=== PATIENT | female | born 1990 | race Caucasian/White ===

== ENCOUNTER 2020-08-08 10:44 | Inpatient (IN) | payer BC ==
[2020-08-08] MEDS ORDERED: Misoprostol 100 MCG Tab VAG PRN (19:01)
[2020-08-08] MEDS ORDERED: Ondansetron 4 MG/2 ML SDV IVPUSH PRN ×2 (19:01→19:22)
[2020-08-08] MEDS ORDERED: Sodium Chloride 0.9% 10 ML Syringe FLUSH PRN (19:01)
[2020-08-08] MEDS ORDERED: Nalbuphine 10 MG/1 ML Vial IVPUSH PRN (19:01)
--- NOTE | 2020-08-08 19:09 | PCM.LDHP ---
L&D History of Present Illness - General Date of Service: 08/08/20 Admit Problem/Dx: Patient Status Order with Admit Dx/Problem 08/08/20 19:01 Patient Status [ADT] Routine Admission Diagnosis/Problem Admission Diagnosis/Problem Source of Information: Patient History Limitations: Reports: No Limitations - History of Present Illness Introduction:: Patient is a 29 y/o at 40 5/7 wks who presents for post dates IOL. Doing well. Good FM. - Related Data Allergies/Adverse Reactions: Allergies Allergy/AdvReac Type Severity Reaction Status Date / Time No Known Allergies Allergy Verified 08/08/20 19:48 Past Medical History [employer] History: Reports: : 1 Para: 0 LMP (Approximate): - Past Surgical History Female Surgical History: Reports: Breast Implant Social & Family History - Tobacco Use Tobacco Use Status *Q: Former Tobacco User - Alcohol Use Alcohol Use History: No - Recreational Drug Use Recreational Drug Use: No H&P Review of Systems - Review of Systems: Review Of Systems: See Below General: Reports: No Symptoms Pulmonary: Reports: No Symptoms Cardiovascular: Reports: No Symptoms Gastrointestinal: Reports: No Symptoms Genitourinary: Reports: No Symptoms Musculoskeletal: Reports: No Symptoms Psychiatric: Reports: No Symptoms Neurological: Reports: No Symptoms L&D Exam - Exam Exam: See Below - OB Specific Contraction Intensity: Irritability Movement: Active Heart Tones: Present Heart Tones per Min: 125 Heart Rate (FHR) Variability: Moderate (6-25 bmp) Presentation: Vertex - Bose Score Bose Score Cervix Position: Posterior Bose Score Consistency: Medium Bose Score Effacement: 51-70% Bose Score Dilation: 3-4 cm Bose Score 's Station: -2 Bose Score Total: 6 - Exam General: Alert, Oriented, Cooperative Lungs: Clear to Auscultation, Normal Respiratory Effort Cardiovascular: Regular Rate, Regular Rhythm GI/Abdominal Exam: Soft, Non-Tender Genitourinary: Normal external exam Extremities: Normal Inspection Skin: Warm, Dry, Intact - Patient Data Result Diagrams: 08/08/20 19:17 - Problem List (1) Post-dates SNOMED Code(s): 46211844 ICD Code: O48.0 - POST-TERM Status: Acute Current Visit: Yes Qualifiers: Post-term type: 40-42 weeks gestation Qualified Code(s): O48.0 - Post-term (2) Rubella non-immune status, antepartum SNOMED Code(s): 870277934 ICD Code: O99.891 - OTH DISEASES AND CONDITIONS COMPLICATING ; Z28.3 - UNDERIMMUNIZATION STATUS Status: Acute Current Visit: Yes Problem List Initiated/Reviewed/Updated: Yes Orders Last 24hrs: Active Orders 24 hr Category Date Time Status Patient Status [ADT] Routine ADT 08/08/20 19:01 Ordered Activity as Tolerated [RC] PFP Care 08/08/20 19:01 Ordered Communication Order [RC] ASDIRECTED Care 08/08/20 19:01 Ordered Communication Order [RC] ASDIRECTED Care 08/08/20 19:01 Ordered Communication Order [RC] ASDIRECTED Care 08/08/20 19:01 Ordered Communication Order [RC] ASDIRECTED Care 08/08/20 19:01 Ordered Monitoring [RC] INTERMITTENT Care 08/08/20 19:01 Ordered Non Stress Test [RC] PER UNIT ROUTINE Care 08/08/20 19:01 Ordered Notify Provider [RC] ASDIRECTED Care 08/08/20 19:01 Ordered Notify Provider [RC] PRN Care 08/08/20 19:01 Ordered Peripheral IV Care [RC] . DIRECTED Care 08/08/20 19:02 Ordered Vaginal Exam [RC] ASDIRECTED Care 08/08/20 19:01 Ordered Vital Signs [RC] ASDIRECTED Care 08/08/20 19:01 Ordered Regular Diet [DIET] Diet 08/08/20 Dinner Ordered CBC W/O DIFF,HEMOGRAM [HEME] Routine Lab 08/08/20 19:01 Ordered CORONAVIRUS COVID-19 SIERRA [MOLEC] Stat Lab 08/08/20 19:04 Ordered HEP C VIRUS AB [REF] Routine Lab 08/08/20 19:01 Ordered RAPID PLASMA REAGIN,RPR [CHEM] Routine Lab 08/08/20 19:01 Ordered TYPE AND SCREEN [BBK] Routine Lab 08/08/20 19:01 Ordered Lactated Ringers [Ringers, Lactated] 1,000 ml Med 08/08/20 19:15 Ordered IV ASDIRECTED Nalbuphine [Nubain] Med 08/08/20 19:01 Ordered 10 mg IVPUSH Q2H PRN Ondansetron [Zofran] Med 08/08/20 19:01 Ordered 4 mg IVPUSH Q4H PRN Oxytocin/Lactated Ringers [Pitocin in LR 10 Units/1,000 Med 08/08/20 19:15 Ordered ML] 10 unit in 1,000 ml IV .CONTINUOUS Oxytocin/Lactated Ringers [Pitocin in LR 10 Units/1,000 Med 08/08/20 19:15 Ordered ML] 10 unit in 1,000 ml IV TITRATE Sodium Chloride 0.9% [Saline Flush] Med 08/08/20 19:01 Ordered 10 ml FLUSH ASDIRECTED PRN miSOPROStoL [Cytotec] Med 08/08/20 19:01 Ordered 25 mcg VAG Q4H PRN Electronic Heart Tones Internal [WOMSER] Per Unit Ot 08/08/20 19:01 Ordered Routine Peripheral IV Insertion Adult [OM.PC] Routine Ot 08/08/20 19:01 Ordered Medication Orders Oxytocin/Lactated Ringer's (Pitocin In Lr 10 Units/1,000 Ml) 10 unit in 1,000 mls @ 12 mls/hr IV TITRATE LESLI; Protocol Oxytocin/Lactated Ringer's (Pitocin In Lr 10 Units/1,000 Ml) 10 unit in 1,000 mls @ 500 mls/hr IV .CONTINUOUS LESLI Lactated Ringer's (Ringers, Lactated) 1,000 mls @ 40 mls/hr IV ASDIRECTED LESLI Misoprostol (Misoprostol 100 Mcg Tab) 25 mcg VAG Q4H PRN PRN Reason: cervical ripening Nalbuphine HCl (Nalbuphine 10 Mg/1 Ml Vial) 10 mg IVPUSH Q2H PRN PRN Reason: Pain Ondansetron HCl (Ondansetron 4 Mg/2 Ml Sdv) 4 mg IVPUSH Q4H PRN PRN Reason: Nausea/Vomiting Sodium Chloride (Sodium Chloride 0.9% 10 Ml Syringe) 10 ml FLUSH ASDIRECTED PRN PRN Reason: Keep Vein Open Assessment/Plan Comment:: * Labs * GBS negative * Pitocin for IOL, AROM when able * Pain management per patient preference * Anticipate
[2020-08-08] MEDS ORDERED: Oxytocin/Lactated Ringers 10 UNIT/1,000 ML BAG IV SCH ×2 (19:15)
[2020-08-08] MEDS ORDERED: fentaNYL 100 MCG/2 ML SDV EPIDUR PRN (19:22)
[2020-08-08] MEDS ORDERED: ePHEDrine 50 MG/ML SDV IVPUSH PRN (19:22)
[2020-08-08] MEDS ORDERED: Bupivacaine/fentaNYL/NS 100 ML Bag EPIDUR SCH (19:30)
[2020-08-08] MEDS: Lactated Ringers 1,000 ML IV SCH (20:34)
--- NOTE | 2020-08-08 23:43 | PCM.PREANE ---
Preanesthetic Assessment - Procedure Proposed Procedure: Epidural - Anesthesia/Transfusion/Family Hx Anesthesia History: Prior Anesthesia Without Reaction Family History of Anesthesia Reaction: No Transfusion History: No Prior Transfusion(s) Intubation History: Unknown - Review of Systems General: No Symptoms Pulmonary: No Symptoms Cardiovascular: No Symptoms Gastrointestinal: No Symptoms (GERD) Neurological: No Symptoms (Lower back pain (chronic)) Other: Reports: None - Physical Assessment NPO Status Date: 08/08/20 NPO Status Time: 17:00 Vital Signs: Last Vital Signs Temp 36.6 C 08/08/20 19:45 Pulse 87 08/08/20 19:45 Resp 16 08/08/20 19:45 BP 146/85 H 08/08/20 19:45 Pulse Ox 99 08/08/20 19:45 Height: 1.75 m Weight: 98.248 kg ASA Class: 3 Mental Status: Alert & Oriented x3 Airway Class: Mallampati = 2 Dentition: Reports: Normal Dentition, Caries Thyro-Mental Finger Breadths: 3 Mouth Opening Finger Breadths: 3 ROM/Head Extension: Full Lungs: Clear to Auscultation, Normal Respiratory Effort Cardiovascular: Regular Rate, Regular Rhythm, No Murmurs - Lab Values: Laboratory Last Values WBC 9.08 K/mm3 (3.98-10.04) 08/08/20 19:17 RBC 3.96 M/mm3 (3.98-5.22) L 08/08/20 19:17 Hgb 11.6 gm/dl (11.2-15.7) 08/08/20 19:17 Hct 33.7 % (34.1-44.9) L 08/08/20 19:17 MCV 85.1 fl (79.4-94.8) 08/08/20 19:17 MCH 29.3 pg (25.6-32.2) 08/08/20 19:17 MCHC 34.4 g/dl (32.2-35.5) 08/08/20 19:17 RDW Std Deviation 40.4 fL (36.4-46.3) 08/08/20 19:17 Plt Count 217 K/mm3 (182-369) 08/08/20 19:17 MPV 10.4 fl (9.4-12.3) 08/08/20 19:17 BUN 10 mg/dL (7-18) 08/08/20 19:17 Creatinine 0.9 mg/dL (0.55-1.02) 08/08/20 19:17 Est Cr Clr Drug Dosing TNP 08/08/20 19:17 Estimated GFR (MDRD) > 60 mL/min (>60) 08/08/20 19:17 Uric Acid 3.7 mg/dL (2.6-6.0) 08/08/20 19:17 AST 21 U/L (15-37) 08/08/20 19:17 ALT 19 U/L (14-59) 08/08/20 19:17 Lactate Dehydrogenase 305 U/L (81-234) H 08/08/20 19:17 Ur Random Creatinine 121.9 mg/dL (30.0-125.0) 08/08/20 20:35 U Random Total Protein 11.3 mg/dL (0.0-11.8) 08/08/20 20:35 Protein/Creatinin Ratio 92.7 mg/g (0-149) 08/08/20 20:35 RPR Non-reactive (NONREACTIVE) 08/08/20 19:17 SARS-CoV-2 RNA (SIERRA) Negative (NEGATIVE) 08/08/20 20:35 Blood Type O POSITIVE 08/08/20 19:17 Gel Antibody Screen Negative 08/08/20 19:17 Above labs reviewed and noted and within acceptable ranges to proceed with epidural if desired. - Allergies Allergies/Adverse Reactions: Allergies Allergy/AdvReac Type Severity Reaction Status Date / Time No Known Allergies Allergy Verified 08/08/20 19:48 - Anesthesia Plan Pre-Op Medication Ordered: None - Acknowledgements Anesthesia Type Planned: Epidural Pt an Appropriate Candidate for the Planned Anesthesia: Yes Alternatives and Risks of Anesthesia Discussed w Pt/Guardian: Yes Pt/Guardian Understands and Agrees with Anesthesia Plan: Yes PreAnesthesia Questionnaire HEENT History: Reports: Other (See Below) Other HEENT History: Wears glasses Gastrointestinal History: Reports: GERD PROGRAM DIR History: Reports: Endocrine/Metabolic History: Reports: Obesity/BMI 30+ Dermatologic History: Reports: Other (See Below) Other Dermatologic History: Dermatophytosis - Past Surgical History Female Surgical History: Reports: Breast Implant - SUBSTANCE USE Tobacco Use Status *Q: Former Tobacco User Tobacco Use Within Last Twelve Months: No Recreational Drug Use History: No - HOME MEDS Home Medications: Home Meds Calcium Carbonate [Tums] 500 mg PO Q2HR PRN 08/08/20 [History] Omeprazole Magnesium [Prilosec Otc] 20 mg PO ACBREAKFAST 08/08/20 [History] No122/Iron/Folic Acid [ Multi Tablet] 1 tab PO DAILY 08/08/20 [History] - CURRENT (IN HOUSE) MEDS Current Meds: Current Medications Ephedrine Sulfate (Ephedrine 50 Mg/Ml Sdv) 5 mg IVPUSH ASDIRECTED PRN PRN Reason: Hypotension Fentanyl (Fentanyl 100 Mcg/2 Ml Sdv) 100 mcg EPIDUR Q3H PRN PRN Reason: Pain Fentanyl/Bupivacaine HCl (Bupivacaine/Fentanyl/Ns 100 Ml Bag) 100 ml EPIDUR ASDIRECTED LESLI Oxytocin/Lactated Ringer's (Pitocin In Lr 10 Units/1,000 Ml) 10 unit in 1,000 mls @ 12 mls/hr IV TITRATE LESLI; Protocol Last Titration: 08/08/20 23:10 Dose: 12 munits/min, 72 mls/hr Documented by: Oxytocin/Lactated Ringer's (Pitocin In Lr 10 Units/1,000 Ml) 10 unit in 1,000 mls @ 500 mls/hr IV .CONTINUOUS LESLI Lactated Ringer's (Ringers, Lactated) 1,000 mls @ 40 mls/hr IV ASDIRECTED LESLI Last Admin: 08/08/20 20:34 Dose: 40 mls/hr Documented by: Miscellaneous Medication (Phenylephrine Hcl In 0.9% Nacl 1 Mg/10 Ml Syringe) 0.1 mg IVPUSH Q10M PRN PRN Reason: Hypotension Nalbuphine HCl (Nalbuphine 10 Mg/1 Ml Vial) 10 mg IVPUSH Q2H PRN PRN Reason: Pain Ondansetron HCl (Ondansetron 4 Mg/2 Ml Sdv) 4 mg IVPUSH Q4H PRN PRN Reason: Nausea/Vomiting Ondansetron HCl (Ondansetron 4 Mg/2 Ml Sdv) 4 mg IVPUSH ONETIME PRN PRN Reason: Nausea/Vomiting Sodium Chloride (Sodium Chloride 0.9% 10 Ml Syringe) 10 ml FLUSH ASDIRECTED PRN PRN Reason: Keep Vein Open Discontinued Medications Misoprostol (Misoprostol 100 Mcg Tab) 25 mcg VAG Q4H PRN PRN Reason: cervical ripening
--- NOTE | 2020-08-09 00:55 | PCM.PNLD ---
Labor Progress Note - VS & Meds Vital Signs: Last Vital Signs Temp 36.6 C 08/08/20 19:45 Pulse 87 08/08/20 19:45 Resp 16 08/08/20 19:45 BP 146/85 H 08/08/20 19:45 Pulse Ox 99 08/08/20 19:45 Active Medications: Current Medications Ephedrine Sulfate (Ephedrine 50 Mg/Ml Sdv) 5 mg IVPUSH ASDIRECTED PRN PRN Reason: Hypotension Fentanyl (Fentanyl 100 Mcg/2 Ml Sdv) 100 mcg EPIDUR Q3H PRN PRN Reason: Pain Fentanyl/Bupivacaine HCl (Bupivacaine/Fentanyl/Ns 100 Ml Bag) 100 ml EPIDUR ASDIRECTED LESLI Oxytocin/Lactated Ringer's (Pitocin In Lr 10 Units/1,000 Ml) 10 unit in 1,000 mls @ 12 mls/hr IV TITRATE LESLI; Protocol Last Titration: 08/09/20 00:15 Dose: 16 munits/min, 96 mls/hr Documented by: Oxytocin/Lactated Ringer's (Pitocin In Lr 10 Units/1,000 Ml) 10 unit in 1,000 mls @ 500 mls/hr IV .CONTINUOUS LESLI Lactated Ringer's (Ringers, Lactated) 1,000 mls @ 40 mls/hr IV ASDIRECTED LESLI Last Admin: 08/08/20 20:34 Dose: 40 mls/hr Documented by: Miscellaneous Medication (Phenylephrine Hcl In 0.9% Nacl 1 Mg/10 Ml Syringe) 0.1 mg IVPUSH Q10M PRN PRN Reason: Hypotension Nalbuphine HCl (Nalbuphine 10 Mg/1 Ml Vial) 10 mg IVPUSH Q2H PRN PRN Reason: Pain Ondansetron HCl (Ondansetron 4 Mg/2 Ml Sdv) 4 mg IVPUSH Q4H PRN PRN Reason: Nausea/Vomiting Ondansetron HCl (Ondansetron 4 Mg/2 Ml Sdv) 4 mg IVPUSH ONETIME PRN PRN Reason: Nausea/Vomiting Sodium Chloride (Sodium Chloride 0.9% 10 Ml Syringe) 10 ml FLUSH ASDIRECTED PRN PRN Reason: Keep Vein Open Discontinued Medications Misoprostol (Misoprostol 100 Mcg Tab) 25 mcg VAG Q4H PRN PRN Reason: cervical ripening - Uterine Contractions Uterine Monitoring Mode: External [place] Contraction Intensity: Mild - Monitoring Monitor Mode: External Ultrasound Heart Rate (FHR) Baseline: 125 Heart Rate (FHR) Variability: Moderate (6-25 bmp) Accelerations: Present, 15x15 Decelerations: None Strip Review: Category I - Vaginal Exam Dilation (cm): 4 Effacement (Percent): 75 Station: -2 Cervical Position: Anterior - Labor Progress (Free Text) Labor Progress: Doing well. Pitocin at 16. Not feeling too uncomfortable. AROM done with release of clear fluid. Continue present management
[2020-08-09] MEDS: Lactated Ringers 1,000 ML IV SCH ×2 (02:33→03:42)
--- NOTE | 2020-08-09 11:01 | PCM.DEL ---
L & D Note - General Info Date of Service: 08/09/20 - Delivery Note Labor: Induced by ARM, Induced by Oxytocin Delivery Outcome: Livebirth Infant Delivery Method: Spontaneous Vaginal Delivery-Single Infant Delivery Mode: Spontaneous Presentation: Right Occiput Anterior (GLORIA) Nuchal Cord: None Anesthesia Type: Epidural Amniotic Fluid Description: Clear Episiotomy Type: None Laceration: 1st Degree Suture type: Vicryl Suture size: 2-0 Placenta: Intact, Spontaneous Cord: 3 Vessels Estimated Blood Loss: 100 Resuscitation Needed: Yes [place]: Bulb Syringe, Stimulated, Warmed, [place] Used Delivery Comments (Free Text/Narrative):: Patient found to be complete and began pushing. With maternal pushing effort head delivered from an GLORIA presentation. No nuchal cord present. With gentle downward traction the shoulders and body delivered. Infant placed on maternal abdomen. Cord clamped and cut. Cord blood obtained. Placenta allowed time to separate and expelled intact. Inspection of the perineum showed a 1st degree laceration which was repaired with a 2-0 Vicryl in an interrupted fashion - General Info Date of Service: 08/09/20 - Patient Data Vitals - Most Recent: Last Vital Signs Temp 36.6 C 08/08/20 19:45 Pulse 87 08/08/20 19:45 Resp 16 08/08/20 19:45 BP 146/85 H 08/08/20 19:45 Pulse Ox 99 08/08/20 19:45 Weight - Most Recent: 98.248 kg I&O - Last 24 Hours: Intake & Output 08/08/20 08/09/20 08/09/20 22:59 06:59 14:59 Output Total Balance @ - Exam Urinary Catheter Total Time: 0Days 0Hours - Problem List & Annotations (1) Post-dates SNOMED Code(s): 96249247 Code(s): O48.0 - POST-TERM Status: Acute Current Visit: Yes Qualifiers: Post-term type: 40-42 weeks gestation Qualified Code(s): O48.0 - Post-term (2) Rubella non-immune status, antepartum SNOMED Code(s): 476742111 Code(s): O99.891 - OTH DISEASES AND CONDITIONS COMPLICATING ; Z28.3 - UNDERIMMUNIZATION STATUS Status: Acute Current Visit: Yes (3) Vaginal delivery SNOMED Code(s): 266043914 Code(s): O80 - ENCOUNTER FOR FULL-TERM UNCOMPLICATED DELIVERY Status: Acute Current Visit: Yes - Problem List Review Problem List Initiated/Reviewed/Updated: Yes - My Orders Last 24 Hours: My Active Orders 08/08/20 Dinner Regular Diet [DIET] 08/08/20 19:01 Patient Status [ADT] Routine Activity as Tolerated [RC] PFP Communication Order [RC] ASDIRECTED Communication Order [RC] ASDIRECTED Communication Order [RC] ASDIRECTED Communication Order [RC] ASDIRECTED Monitoring [RC] INTERMITTENT Notify Provider [RC] ASDIRECTED Notify Provider [RC] PRN Nalbuphine [Nubain] 10 mg IVPUSH Q2H PRN Ondansetron [Zofran] 4 mg IVPUSH Q4H PRN Sodium Chloride 0.9% [Saline Flush] 10 ml FLUSH ASDIRECTED PRN Electronic Heart Tones Internal [WOMSER] Per Unit Routine Peripheral IV Insertion Adult [OM.PC] Routine 08/08/20 19:15 Lactated Ringers [Ringers, Lactated] 1,000 ml IV ASDIRECTED Oxytocin/Lactated Ringers [Pitocin in LR 10 Units/1,000 ML] 10 unit in 1,000 ml IV .CONTINUOUS Oxytocin/Lactated Ringers [Pitocin in LR 10 Units/1,000 ML] 10 unit in 1,000 ml IV TITRATE 08/08/20 19:17 HEP C VIRUS AB [REF] Routine 08/08/20 20:18 PIH Panel [OM.PC] Stat - Assessment Assessment:: PPD#0 - Plan Plan:: * Routine cares * Breast feeding * MMR prior to discharge. * Discharge home in 1-2 days
[2020-08-09] MEDS ORDERED: Benzocaine/Menthol 20%-0.5% Spray 56 GM Canister TOP PRN (12:17)
[2020-08-09] MEDS ORDERED: Acetaminophen 325 MG Tab PO PRN (12:17)
[2020-08-09] MEDS ORDERED: Witch Hazel Medicated Pads 40/Jar TOP PRN (12:17)
[2020-08-09] MEDS ORDERED: Docusate Sodium 100 MG Cap PO PRN (12:17)
[2020-08-09] MEDS: Ibuprofen 600 MG Tab PO PRN ×2 (13:02→22:06)
[2020-08-09] MEDS ORDERED: Bupivacaine 0.25% 10 ML SDV ONE (14:00)
[2020-08-10] MEDS: Ibuprofen 600 MG Tab PO PRN ×2 (03:42→16:22)
--- NOTE | 2020-08-10 10:26 | PCM48HPAN ---
Post Anesthesia Note - EVALUATION WITHIN 48HRS OF ANESTHETIC Vital Signs in Normal Range: Yes Patient Participated in Evaluation: Yes Respiratory Function Stable: Yes Airway Patent: Yes Cardiovascular Function Stable: Yes Hydration Status Stable: Yes Pain Control Satisfactory: Yes Nausea and Vomiting Control Satisfactory: Yes Mental Status Recovered: Yes Vital Signs: Last Vital Signs Temp 97.2 F 08/10/20 03:40 Pulse 69 08/10/20 03:40 Resp 13 08/10/20 03:40 BP 91/54 L 08/10/20 03:40 Pulse Ox 97 08/10/20 03:40
--- NOTE | 2020-08-10 11:30 | PCM.SN.2 ---
- Free Text/Narrative Note: Post Progress Note PPD #1 Subjective: Doing well overall. Ambulating without difficulty. Lochia minimal. Voiding without difficulty. Tolerating regular diet without nausea or vomiting. Pain controlled with oral medications. Breast-feeding with formula supplementation as needed with minimal difficulty. Denies any headaches, vision changes or epigastric pain. Objective: Vitals: Vital Signs - 24 hr 08/09/20 08/09/20 08/10/20 14:48 22:05 03:40 Temperature 37.0 C 36.6 C 36.2 C Pulse, 84 74 69 Peripheral Respiratory 14 14 13 Rate Blood Pressure 109/62 123/68 91/54 L O2 Sat by Pulse 92 L 96 97 Oximetry Physical Exam General: Alert and oriented, no acute distress Lungs: Clear to auscultation bilaterally Heart: Regular rate and rhythm Abdomen: Soft, minimal appropriate tenderness, non-distended, fundus midline, nontender, and 1 fingerbreadth below the umbilicus Extremities: Trace edema in bilateral lower extremities to mid shins, no calf tenderness bilaterally ASSESSMENT: 29-year-old female -0-0-1 s/p normal vaginal delivery PPD #1, complicated by gestational hypertension diagnosed in labor PLAN: Doing well Breast-feeding with small amounts of formula supplementation with minimal difficulty. Assist as needed Lochia minimal. Continue to monitor for appropriate lochia. Continue routine care Anticipate discharge home tomorrow Kranthi Powell MD 11:30 AM 08/10/2020
[2020-08-11] MEDS: Ibuprofen 600 MG Tab PO PRN ×2 (01:11→10:07)
--- NOTE | 2020-08-11 11:15 | PCM.SN.2 ---
- Free Text/Narrative Note: Post Progress Note PPD #2 Subjective: Doing well overall. Ambulating without difficulty. Lochia minimal. Voiding without difficulty. Tolerating regular diet without nausea or vomiting. Pain controlled with oral medications. Patient reports that she has been having some increased amount of soreness in her low back. Denies any sharp pain in her low back. It has been very mild overall. Ibuprofen seems to help more for this pain. Breast-feeding with formula supplementation as needed with minimal dif ficulty. Denies any headaches, vision changes or epigastric pain. Objective: Vitals: Vital Signs - 24 hr 08/10/20 08/10/20 08/11/20 16:20 20:18 04:01 Temperature 36.5 C 36.7 C 36.2 C Pulse, 82 73 63 Peripheral Respiratory 16 14 14 Rate Blood Pressure 118/71 116/73 103/58 L O2 Sat by Pulse 95 96 97 Oximetry 08/11/20 10:09 Temperature 36.6 C Pulse, 58 L Peripheral Respiratory 15 Rate Blood Pressure 122/84 O2 Sat by Pulse 96 Oximetry Physical Exam General: Alert and oriented, no acute distress Lungs: Clear to auscultation bilaterally Heart: Regular rate and rhythm Abdomen: Soft, minimal appropriate tenderness, non-distended, fundus midline, nontender, and 2 fingerbreadths below the umbilicus Extremities: Trace edema in bilateral lower extremities to mid shins, no calf tenderness bilaterally ASSESSMENT: 29-year-old female -0-0-1 s/p normal vaginal delivery PPD #2, complicated by gestational hypertension diagnosed in labor PLAN: Doing well Breast-feeding with small amounts of formula supplementation with minimal difficulty. Assist as needed Lochia minimal. Continue to monitor for appropriate lochia. Patient with mild soreness in her lower back. Likely due to muscle soreness and tightening from pushing during labor. Continue routine care Discharge home today Kranthi Powell MD 11:12 AM 08/11/2020
--- NOTE | 2020-08-11 11:25 | PCM.DCSUM1 ---
Discharge Summary - Hospital Course Free Text/Narrative:: - General Info Date of Service: 08/09/20 - Delivery Note Labor: Induced by ARM, Induced by Oxytocin Delivery Outcome: Livebirth Delivery Method: Spontaneous Vaginal Delivery-Single Delivery Mode: Spontaneous Presentation: Right Occiput Anterior (GLORIA) Nuchal Cord: None Anesthesia Type: Epidural Amniotic Fluid Description: Clear Episiotomy Type: None Laceration: 1st Degree Suture type: Vicryl Suture size: 2-0 Placenta: Intact, Spontaneous Cord: 3 Vessels Estimated Blood Loss: 100 Resuscitation Needed: Yes [place]: Bulb Syringe, Stimulated, Warmed, [place] Used Delivery Comments (Free Text/Narrative):: Patient found to be complete and began pushing. With maternal pushing effort head delivered from an GLORIA presentation. No nuchal cord present. With gentle downward traction the shoulders and body delivered. Infant placed on maternal abdomen. Cord clamped and cut. Cord blood obtained. Placenta allowed time to separate and expelled intact. Inspection of the perineum showed a 1st degree laceration which was repaired with a 2-0 Vicryl in an interrupted fashion Diagnosis: Stroke: No - Discharge Data Discharge Date: 08/11/20 Discharge Disposition: Home, Self-Care 01 Condition: Good - Referral to Home Health Primary Care Physician: Indu Park MD - Discharge Diagnosis/Problem(s) (1) 40 weeks gestation of SNOMED Code(s): 78174495 ICD Code: Z3A.40 - 40 WEEKS GESTATION OF Status: Acute Current Visit: Yes (2) Rubella non-immune status, antepartum SNOMED Code(s): 828175648 ICD Code: O99.891 - OTH DISEASES AND CONDITIONS COMPLICATING ; Z28.3 - UNDERIMMUNIZATION STATUS Status: Acute Current Visit: Yes (3) Vaginal delivery SNOMED Code(s): 177853970 ICD Code: O80 - ENCOUNTER FOR FULL-TERM UNCOMPLICATED DELIVERY Status: Acute Current Visit: Yes (4) Gestational hypertension SNOMED Code(s): 215772877 ICD Code: O13.9 - GESTATIONAL HTN W/O SIGNIFICANT PROTEINURIA, UNSP TRIMESTER Status: Acute Current Visit: Yes - Patient Summary/Data Complications: None Consults: None Hospital Course: Haily Krueger was admitted for elective induction of labor. On admission her cervix was dilated to 3-4 cm. She was GBS negative. She was given pitocin for augmentation. She was given an epidural for anesthesia. She had artificial rupture of membranes with clear fluid. She progressed to complete and began pushing. On 08/01/2020 she had a normal vaginal delivery of a live male at 10:44. Apgars of 8 and 9. Weight of 3600 g (7 pounds 15.0 ounces). Her course was uneventful. Her pain was well controlled and she had minimal lochia. She was ambulating, tolerating a regular diet and voiding normally. She was breast-feeding with small amounts of formula supplementation with minimal difficulty. She was afebrile and her hematocrit was 33.7 on admission. She desired to be discharged home on the morning of PPD #2. Her blood type is O+. - Patient Instructions Diet: Regular Diet as Tolerated Activity: Apply Ice, As Tolerated Activity, Other: Nothing in the vagina for 6 weeks Driving: May Drive Today Showering/Bathing: May Shower Notify Provider of: Fever, Increased Pain, Swelling and Redness, Drainage, Nausea and/or Vomiting Other/Special Instructions: Please contact your physician's office if you have heavy vaginal bleeding enough to soak a pad in less than an hour for several hours. Monitor for any signs of an infection in the breasts with severe pain or redness of the breast. Please contact your physician's office if you have a severe headache that does not improve with Tylenol or ibuprofen, spots in your vision or severe pain in your upper abdomen. - Discharge Plan *PRESCRIPTION DRUG MONITORING PROGRAM REVIEWED*: Not Applicable *COPY OF PRESCRIPTION DRUG MONITORING REPORT IN PATIENT VANDANA: Not Applicable Home Medications: Home Meds No122/Iron/Folic Acid [ Multi Tablet] 1 tab PO DAILY 08/08/20 [History] Acetaminophen [Tylenol] 650 mg PO Q4H PRN tablet 08/11/20 [Rx] Benzocaine/Menthol [Dermoplast Pain Relief [place]] 1 spray TOP ASDIRECTED PRN canister 08/11/20 [Rx] Docusate Sodium [Colace] 100 mg PO BID PRN cap 08/11/20 [Rx] Ibuprofen [Motrin] 600 mg PO Q6H PRN tablet 08/11/20 [Rx] martha gaonaeL [Tucks] 1 pad TOP ASDIRECTED PRN pad 08/11/20 [Rx] Patient Handouts: Care of a Perineal Tear, Care After Vaginal Delivery Referrals: Indu Park MD [Primary Care Provider] - (Follow-up in 1 week for blood pressure check and routine visit or earlier as needed.) - Discharge Summary/Plan Comment DC Time >30 min.: No - Patient Data Vitals - Most Recent: Last Vital Signs Temp 36.6 C 08/11/20 10:09 Pulse 58 L 08/11/20 10:09 Resp 15 08/11/20 10:09 BP 122/84 08/11/20 10:09 Pulse Ox 96 08/11/20 10:09 Weight - Most Recent: 98.248 kg Lab Results - Last 24 hrs: Laboratory Results - last 24 hr 08/08/20 Range/Units 19:17 Hepatitis C Antibody <0.1 (0.0-0.9) s/co ratio Med Orders - Current: Current Medications Acetaminophen (Acetaminophen 325 Mg Tab) 650 mg PO Q4H PRN PRN Reason: mild pain or fever Benzocaine/Menthol (Benzocaine/Menthol 20%-0.5% [place] 56 Gm Canister) 0 gm TOP ASDIRECTED PRN PRN Reason: Perineal Comfort Measure Last Admin: 08/09/20 13:01 Dose: 1 can Documented by: Docusate Sodium (Docusate Sodium 100 Mg Cap) 100 mg PO BID PRN PRN Reason: Constipation Ibuprofen (Ibuprofen 600 Mg Tab) 600 mg PO Q6H PRN PRN Reason: Mild pain or fever Last Admin: 08/11/20 10:07 Dose: 600 mg Documented by: Martha Dinh (Martha Dinh Medicated Pads 40/Jar) 1 pad TOP ASDIRECTED PRN PRN Reason: Perineal Comfort Measure Last Admin: 08/09/20 13:01 Dose: 1 container Documented by: Discontinued Medications Bupivacaine HCl (Bupivacaine 0.25% 10 Ml Sdv) 10 ml .ROUTE .STK-MED ONE Stop: 08/09/20 14:01 Ephedrine Sulfate (Ephedrine 50 Mg/Ml Sdv) 5 mg IVPUSH ASDIRECTED PRN PRN Reason: Hypotension Fentanyl (Fentanyl 100 Mcg/2 Ml Sdv) 100 mcg EPIDUR Q3H PRN PRN Reason: Pain Last Admin: 08/09/20 02:26 Dose: 100 mcg Documented by: Fentanyl/Bupivacaine HCl (Bupivacaine/Fentanyl/Ns 100 Ml Bag) 100 ml EPIDUR ASDIRECTED [facility] Last Admin: 08/09/20 02:26 Dose: 100 ml Documented by: Oxytocin/Lactated Ringer's (Pitocin In Lr 10 Units/1,000 Ml) 10 unit in 1,000 mls @ 12 mls/hr IV TITRATE LESLI; Protocol Last Titration: 08/09/20 09:47 Dose: Infused Documented by: Oxytocin/Lactated Ringer's (Pitocin In Lr 10 Units/1,000 Ml) 10 unit in 1,000 mls @ 500 mls/hr IV .CONTINUOUS LESLI Lactated Ringer's (Ringers, Lactated) 1,000 mls @ 40 mls/hr IV ASDIRECTED [facility] Last Admin: 08/09/20 03:42 Dose: 40 mls/hr Documented by: Miscellaneous Medication (Phenylephrine Hcl In 0.9% Nacl 1 Mg/10 Ml Syringe) 0.1 mg IVPUSH Q10M PRN PRN Reason: Hypotension Misoprostol (Misoprostol 100 Mcg Tab) 25 mcg VAG Q4H PRN PRN Reason: cervical ripening Nalbuphine HCl (Nalbuphine 10 Mg/1 Ml Vial) 10 mg IVPUSH Q2H PRN PRN Reason: Pain Ondansetron HCl (Ondansetron 4 Mg/2 Ml Sdv) 4 mg IVPUSH Q4H PRN PRN Reason: Nausea/Vomiting Ondansetron HCl (Ondansetron 4 Mg/2 Ml Sdv) 4 mg IVPUSH ONETIME PRN PRN Reason: Nausea/Vomiting Sodium Chloride (Sodium Chloride 0.9% 10 Ml Syringe) 10 ml FLUSH ASDIRECTED PRN PRN Reason: Keep Vein Open
== END 2020-08-11 14:20 | disposition home or self-care (01) | DRG 560 ==
LOC: JD.OB 10:44 → OBSVTOIN 08-09 10:44 → JD.OB 08-09 10:45
PROVIDERS: ADMIT Obstetrics & Gynecology; ATTEND Obstetrics & Gynecology
PROC: 10E0XZZ Delivery of Products of Conception, External Approach (ICD-10-PCS; principal; 2020-08-09)
PROC: 10907ZC Drainage of Amniotic Fluid, Therapeutic from Products of Conception, Via Natural or Artificial Opening (ICD-10-PCS; 2020-08-09)
PROC: 0HQ9XZZ Repair Perineum Skin, External Approach (ICD-10-PCS; 2020-08-09)
PROC: 3E033VJ Introduction of Other Hormone into Peripheral Vein, Percutaneous Approach (ICD-10-PCS; 2020-08-09)
PROC: 3E0R3BZ Introduction of Anesthetic Agent into Spinal Canal, Percutaneous Approach (ICD-10-PCS; 2020-08-09)
DX: O48.0 Post-term pregnancy (principal); Z37.0 Single live birth; O13.4 Gestational [pregnancy-induced] hypertension without significant proteinuria, complicating childbirth; O70.0 First degree perineal laceration during delivery; Z20.822 Contact with and (suspected) exposure to COVID-19; Z3A.40 40 weeks gestation of pregnancy; Z87.891 Personal history of nicotine dependence
CPT/HCPCS: 01967; 36415; 51702; 59025; 59409; 82565; 82570; 83615; 84156; 84450; 84460; 84520; 84550; 85027; 86592; 86803; 86850; 86900; 86901; A9270-GY; J2590; J3010; J3490; J7120; U0002

== ENCOUNTER 2021-10-25 19:20 | Emergency (ER) | payer BC ==
[2021-10-25] MEDS ORDERED: Sodium Chloride 0.9% 10 ML Syringe FLUSH PRN (19:55)
[2021-10-25] MEDS ORDERED: Sodium Chloride 0.9% 1,000 ML IV STA ×2 (20:31→20:55)
[2021-10-25 20:34] LABS: ESTIMATED GFR 101 mL/min (>60)
[2021-10-25] MEDS ORDERED: Ondansetron 4 MG/2 ML SDV IVPUSH ONE (20:55)
[2021-10-25] MEDS ORDERED: HYDROmorphone 0.5 MG/0.5 ML Syringe IVPUSH ONE (20:55)
[2021-10-25] MEDS ORDERED: Magnesium Citrate Solution 296 ML Bottle PO ONE (23:25)
== END 2021-10-25 23:55 | disposition home or self-care (01) ==
LOC: JD.ED 19:20
DX: R10.84 Generalized abdominal pain (principal); E66.9 Obesity, unspecified; Z68.23 Body mass index [BMI] 23.0-23.9, adult
CPT/HCPCS: 36415; 74177; 80053; 81001; 84703; 85025; 86140; 96361; 96374; 96375; 99284; J1170; J2405; J3490; J7030; 99283

== ENCOUNTER 2022-10-28 04:01 | Inpatient (IN) | payer BC ==
[2022-10-28] MEDS ORDERED: Nalbuphine 10 MG/0.5 ML Syringe IVPUSH PRN (18:51)
[2022-10-28] MEDS ORDERED: Sodium Chloride 0.9% 10 ML Syringe FLUSH PRN (18:51)
[2022-10-28] MEDS ORDERED: Acetaminophen 325 MG Tab PO PRN (18:51)
[2022-10-28] MEDS ORDERED: Lidocaine 1% 50 ML MDV INJECT ONE (18:51)
[2022-10-28] MEDS ORDERED: Ondansetron 4 MG/2 ML SDV IVPUSH PRN (18:51)
[2022-10-28] MEDS ORDERED: Oxytocin/Lactated Ringers 10 UNIT/1,000 ML BAG IV SCH ×2 (19:00)
[2022-10-28 19:28] LABS: HEMATOCRIT 31.9 % (34.1-44.9); HEMOGLOBIN 10.7 gm/dl (11.2-15.7); MEAN CORPUSCULAR HEMOGLOBIN 28.5 pg (25.6-32.2); MEAN CORPUSCULAR HGB CONC 33.5 g/dl (32.2-35.5); MEAN CORPUSCULAR VOLUME 84.8 fl (79.4-94.8); MEAN PLATELET VOLUME 10.8 fl (9.4-12.3); PLATELET COUNT,PLT 201 K/mm3 (182-369); RED BLOOD CELL COUNT 3.76 M/mm3 (3.98-5.22); WHITE BLOOD CELL COUNT,WBC 9.49 K/mm3 (3.98-10.04)
[2022-10-28] MEDS ORDERED: Sodium Chloride 0.9% 10 ML Syringe FLUSH SCH (21:00)
[2022-10-28] MEDS: Lactated Ringers 1,000 ML IV SCH ×2 (22:11→22:51)
[2022-10-28] MEDS ORDERED: fentaNYL 100 MCG/2 ML SDV EPIDUR PRN (22:38)
[2022-10-28] MEDS ORDERED: Bupivacaine/fentaNYL/NS 100 ML Bag EPIDUR PRN (22:38)
[2022-10-28] MEDS ORDERED: ePHEDrine 50 MG/ML SDV IVPUSH PRN (22:38)
[2022-10-28] MEDS ORDERED: diphenhydrAMINE 50 MG/ML SDV IVPUSH PRN (22:38)
[2022-10-29] MEDS ORDERED: Bupivacaine 0.25% 10 ML SDV ONE
[2022-10-29] MEDS ORDERED: Lidocaine 1% 10 ML MDV ONE
[2022-10-29] MEDS: Lactated Ringers 1,000 ML IV SCH ×2 (00:53→01:37)
[2022-10-29] MEDS ORDERED: Witch Hazel Medicated Pads 40/Jar TOP PRN (04:02)
[2022-10-29] MEDS ORDERED: Docusate Sodium 100 MG Cap PO PRN (04:02)
[2022-10-29] MEDS ORDERED: Acetaminophen 325 MG Tab PO PRN (04:02)
[2022-10-29] MEDS ORDERED: Benzocaine/Menthol 20%-0.5% Spray 78 GM Cannister TOP PRN (04:02)
[2022-10-29] MEDS: Ibuprofen 600 MG Tab PO PRN ×2 (11:55→18:47)
[2022-10-30] MEDS: Ibuprofen 600 MG Tab PO PRN ×4 (02:21→20:38)
[2022-10-31] MEDS: Ibuprofen 600 MG Tab PO PRN (05:02)
== END 2022-10-31 10:30 | disposition home or self-care (01) | DRG 560 ==
LOC: JD.OB 04:01 → OBSVTOIN 10-29 04:01 → JD.OB 10-29 04:40 → UNDODISIN 10-31 10:30
PROVIDERS: ADMIT Obstetrics & Gynecology; ATTEND Obstetrics & Gynecology
PROC: 10E0XZZ Delivery of Products of Conception, External Approach (ICD-10-PCS; principal; 2022-10-29)
PROC: 10907ZC Drainage of Amniotic Fluid, Therapeutic from Products of Conception, Via Natural or Artificial Opening (ICD-10-PCS; 2022-10-29)
PROC: 3E0R3BZ Introduction of Anesthetic Agent into Spinal Canal, Percutaneous Approach (ICD-10-PCS; 2022-10-29)
PROC: 00HU33Z Insertion of Infusion Device into Spinal Canal, Percutaneous Approach (ICD-10-PCS; 2022-10-29)
DX: O69.81X0 Labor and delivery complicated by cord around neck, without compression, not applicable or unspecified (principal); Z37.0 Single live birth; O77.0 Labor and delivery complicated by meconium in amniotic fluid; Z3A.39 39 weeks gestation of pregnancy; Z87.891 Personal history of nicotine dependence; Z28.39 Other underimmunization status
CPT/HCPCS: 36415; 51702; 59025; 59409; 85027; 86592; 86850; 86900; 86901; A9270-GY; J2590; J3010; J3490; J7120